=== PATIENT | female | born 1965 | race African-American/Black ===

== ENCOUNTER 2016-11-13 11:13 | Day surgery (SDC) | payer OTHER ==
[2016-11-10 16:12] VITALS: BMI 29.1
[~2016-11-13] VITALS: Ht 154.9 cm; Wt 75.9 kg
[2016-11-13] VITALS (15 sets, daily range): BP systolic 127–175; BP diastolic 77–104; PULSE 62–118; RESP 11–18; Ht 154.9 cm; Wt 75.9 kg
[~2016-11-13 11:13] MED LIST: CEFAZOLIN 1 GM INJ ONE; GLYCOPYRROLATE 0.4 MG INJ ONE; NEOSTIGMINE 3 MG/3 ML SYRINGE ONE
[2016-11-13] MEDS ORDERED: HYDR-902 PO (12:40)
[2016-11-13] MEDS ORDERED: MIDAZOLAM 1 MG/ML 2 ML INJ ONE (13:55)
[2016-11-13] MEDS ORDERED: PROPOFOL 20 ML ONE (13:55)
[2016-11-13] MEDS ORDERED: ROCURONIUM 50 MG INJ ONE (13:55)
[2016-11-13] MEDS ORDERED: ROPIVACAINE 0.5 % 30 ML VIAL ONE ×2 (13:56→15:20)
[2016-11-13] MEDS ORDERED: ONDANSETRON 4 MG INJ ONE (13:56)
[2016-11-13] MEDS ORDERED: DEXAMETHASONE 4 MG/ML 1 ML INJ ONE (13:56)
[2016-11-13] MEDS ORDERED: POVIDONE IODINE 10% 28.4 GM OINT ONE (15:20)
[2016-11-13] MEDS ORDERED: SOD CHLORIDE 0.9% 1,000 ML IV SCH (15:22)
[2016-11-13] MEDS ORDERED: morphine 2 MG INJ IV PRN (15:30)
[2016-11-13] MEDS ORDERED: ONDANSETRON 4 MG INJ IV PRN ×2 (15:30→16:30)
[2016-11-13] MEDS ORDERED: OXYCODONE/ACETAMINOPHEN (5/325) TAB PO PRN ×2 (15:30)
[2016-11-13] MEDS ORDERED: DIPHENHYDRAMINE 50 MG INJ IV PRN (16:30)
[2016-11-13] MEDS ORDERED: LABETALOL HCL 20MG INJ IV PRN (16:30)
[2016-11-13] MEDS ORDERED: EPHEDrine SULFATE 50 MG/5 ML SYG IV PRN (16:30)
[2016-11-13] MEDS ORDERED: MIDAZOLAM 1 MG/ML 2 ML INJ IV PRN (16:30)
[2016-11-13] MEDS ORDERED: MEPERIDINE 25 MG INJ IV PRN (16:30)
[2016-11-13] MEDS ORDERED: TRIMETHOBENZAMIDE 100 MG/ML VIAL IM PRN (16:30)
[2016-11-13] MEDS ORDERED: HYDROmorphONE (0.2 MG/ML) 10ML SYG IV PRN ×3 (16:30)
[2016-11-13] MEDS ORDERED: hydrALAzine 20 MG INJ IV PRN (16:30)
[2016-11-13] MEDS ORDERED: FENTAnyl 50 MCG/ML VIAL IV PRN ×3 (16:30)
--- NOTE | 2016-11-13 18:18 | RADRPT ---
PROCEDURE: Intraoperative imaging of the right ankle with fluoroscopy. CLINICAL INDICATION: Right ankle pain. Intraoperative. TECHNIQUE: 10 images of the right ankle were obtained in the operating room with an image intensif ier. No radiologist was in attendance. 0.4 minutes of fluoroscopy time was used. COMPARISON: No prior study is available for comparison. FINDINGS: Images demonstrate surgical instruments overlying the right ankle. IMPRESSION: 1. Intraoperative imaging of the right ankle. RPTAT: QQ .Barry Forbes MD, MD Date Time Electronically viewed and signed by .Barry Forbes MD, MD on 11/13/2016 18:18 .R/
--- NOTE | 2016-11-14 01:57 | OPR ---
DATE OF OPERATION: 11/13/2016 PREOPERATIVE DIAGNOSES: 1. Status post arthroscopy of the right ankle; excision of osteochondral lesion, medial talar dome a nd underlying cyst; insertion of PRP 11/19/2015. 2. Recurrent pain in the right ankle, rule out secondary to incompletely healed osteochondral lesio n. 3. Insufficiency fracture of the talus. POSTOPERATIVE DIAGNOSES: 1. Status post arthroscopy, right ankle with excision of medial osteochondral lesion of the talus a nd underlying cyst with drilling and microfracture and insertion of PRP 11/19/2015. 2. Incomplete healing, osteochondral lesion, medial talar dome, right ankle. 3. Synovitis, adhesions and scar tissue. 4. Insufficiency fracture with extensive edema of the talus. OPERATION PERFORMED: 1. Arthroscopy, right ankle with soft tissue distraction. 2. Extensive debridement of the ankle. 3. Open reduction and internal fixation, insufficiency fracture of the talus with calcium phosphate implant. 4. Use of fluoroscopy to verify position and alignment of our obturator and needle. 5. Short-leg splint. SURGEON: Anya Martin MD FINISHER MAP AND CHART: Bg Mota MD ANESTHESIA: General with popliteal block. TOURNIQUET TIME: 75 minutes. DESCRIPTION OF PROCEDURE: The patient taken to the operating room, placed in supine position. Sati sfactory popliteal block was given, satisfactory general anesthesia administered. The right thigh s ecured in the thigh ayala. Arms were carefully padded. The right leg was prepped and draped in th e usual manner. Superficial peroneal nerve was marked out. Distraction was applied noninvasively a fter the tourniquet was inflated ____ mmHg. Standard anteromedial, anterolateral and ____ portals w ere used using extreme caution. An extensive amount of scarring throughout the anterior ankle. The re are osteophytes from the tip of the medial malleolus to the syndesmosis, scarring along the media l and lateral gutter. There was also some fraying of the osteochondral lesion bed where the lesion had incompletely healed. The rest of the articular surface had minimal chondromalacia centrally, la terally and posteriorly in the ankle. Hemorrhagic synovial nodule ____ scar posteriorly. Shaver wa s inserted. The medial gutter was debrided, soft tissue peeled off the distal tibia. A bur was use d to remove the osteophytes from the distal tibia. The lateral gutter was debrided, as was the ante rior gutter and posterior gutters. Hemorrhagic synovial nodule was removed. The osteochondral lesi on was debrided. All loose material was excised. There was some covering of the osteochondral lesi on, but it was incomplete. The fluoroscope was brought in. A spinal needle was used to localize the area of the sinus tarsi th at we wanted to do our internal fixation with a calcium phosphate implant. Incision was made in sin us tarsi, dissection carried down to the bone. Under fluoroscopic guidance, the cannula was inserte d up the sinus tarsi into the lateral talus and into the area of the subchondral bone insufficiency fracture and edema on the MRI. Once it was well localized on the AP and lateral radiographs, 1.5 mL of calcium phosphate implant was injected into the talus. We were able to visualize it going in un samia fluoroscopy. The cannula was left in place for approximately 5 minutes of hardening of the calc ium phosphate. The cannulas were then removed. There was no evidence of extravasation in the sinus tarsi, and we put the arthroscope in the ankle. There was no evidence of extravasation in the ankl e. Throughout the procedure, fluoroscope was used to confirm the appropriate placement of the cannu la. The calcium phosphate implant best served as an internal fixation for the insufficiency fractur e of the talus. The portals were then irrigated clear. Wounds were closed with 4-0 black nylon interrupted. Saphen ous nerve block done with 0.5% ropivacaine and compression dressing applied with a posterior splint with the patient in neutral position. End of procedure, sponge, needle count was correct. The krish ent tolerated procedure well. SOFTWARE QUALITY ASSURANCE ANALYST ORTHOPEDIC SURGEON: During the procedure, an therapist's assistant orthopedic surgeon was used at my request. The therapist's assistant helped with distraction of the ankle, helped with localization where we want ed to insert the cannula into the insufficiency fracture and helped injecting material while I stabi lized the cannula. Without a skilled therapist's assistant, this could not have been done properly and thus geena andreiad be compensated appropriately. Dictated By: ANYA ALTMAN/XUAN Conf#: [id number] DID#: [id number]
== END 2016-11-13 19:43 | disposition home or self-care (01) ==
LOC: SDS 11:13
PROVIDERS: ATTEND Orthopaedic Surgery
DX: M93.271 Osteochondritis dissecans, right ankle and joints of right foot (principal); M65.871 Other synovitis and tenosynovitis, right ankle and foot
CPT/HCPCS: 29892; 29898; 73610; 82962; J0690; J1100; J1170; J2250; J2405; J2710; J2795; J3010